=== PATIENT | male | born 1995 | race Caucasian/White ===

== ENCOUNTER 2024-06-12 05:06 | Emergency (ER) | payer BC | END 2024-06-12 06:00 | disposition home or self-care (01) | LOC: JD.ED 05:06 | DX: J20.8 Acute bronchitis due to other specified organisms (principal); B34.9 Viral infection, unspecified; Z86.16 Personal history of COVID-19; Z79.899 Other long term (current) drug therapy | CPT/HCPCS: 71045; 71045-26; 99283 ==